=== PATIENT | female | born 2000 | race Caucasian/White ===

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

== ENCOUNTER → 2020-10-16 03:00 | Observation (INO) ==
[2020-10-16 02:36] LABS: Bacteria,Urine Few per hpf (None-Few); Bilirubin,Urine Negative (Negative); Blood,Urine Negative (Negative); Clarity,Urine Clear (Clear); Color,Urine Light-Yellow (Yellow); Glucose,Urine (UA) Normal (Normal); Ketones,Urine Negative (Negative); Leukocyte Esterase,Urine Moderate (Negative); Mucus,Urine Few per lpf (None-Few); Nitrite,Urine Negative (Negative); Protein,Urine Trace mg/dL (Neg-Trace); RBC,Urine 0-3 per hpf (0-3); Specific Gravity,Urine 1.022 (1.010-1.025); Squamous Epithelial Cell,Urine Few per hpf (None-Few)
== END | disposition home or self-care (01) ==
LOC: 1NENULAB
PROVIDERS: ADMIT Registered Nurse; ATTEND Registered Nurse

== ENCOUNTER 2020-10-16 13:04 | Inpatient (IN) ==
[~2020-10-16 13:04] MED LIST changes: -*HR* FentaNYL (PF) 100 MCG/2 ML VIAL IVP PRN; -Famotidine 20 MG/2 ML VIAL IVP PRN; -Lidocaine 1% 20 ML MDV INFILT PRN; +Methylergonovine 0.2 MG/ML AMPUL IM ONE; -Metoclopramide 10 MG/2 ML VIAL IVP PRN; -Naloxone 0.4 MG/ML INJ IVP PRN; -Ondansetron 4 MG/2 ML VIAL IVP PRN
[2020-10-16] MEDS ORDERED: Lidocaine 1% 20 ML MDV INFILT PRN (13:56)
[2020-10-16] MEDS ORDERED: Famotidine 20 MG/2 ML VIAL IVP PRN (13:56)
[2020-10-16] MEDS ORDERED: Metoclopramide 10 MG/2 ML VIAL IVP PRN (13:56)
[2020-10-16] MEDS ORDERED: Naloxone 0.4 MG/ML INJ IVP PRN (13:56)
[2020-10-16] MEDS ORDERED: *HR* Nalbuphine 10 MG/ML AMPUL IV PRN (13:56)
[2020-10-16] MEDS ORDERED: Ondansetron 4 MG/2 ML VIAL IVP PRN (13:56)
[2020-10-16] MEDS ORDERED: Ringers Solution, Lactated 1,000 ML IVC SCH (14:00)
[2020-10-16 14:25] LABS: Amphetamine Screen,Urine Negative ng/mL (Cutoff=1000); Barbiturate Screen,Urine Negative ng/mL (Cutoff=200); Benzodiazepines Screen,Urine Negative ng/mL (Cutoff=200); Cannabinoid Screen,Urine Negative ng/mL (Cutoff = 50); Cocaine Screen,Urine Negative ng/mL (Cutoff= 300); Opiate Screen,Urine Negative ng/mL (Cutoff=300); Phencyclidine Screen,Urine Negative ng/mL (Cutoff=25)
[2020-10-16 14:37] LABS: Basophils # 0.1 K/mcL (0.0-0.2); Basophils % 0.5 %; Eosinophils # 0.2 K/mcL (0.0-0.6); Eosinophils % 1.2 %; Hematocrit 31.1 % (35.3-44.9); Immature Granulocytes % 0.5 % (0-4); Lymphocytes # 2.1 K/mcL (0.6-4.6); Lymphocytes % 15.7 %; Mean Corpuscular HGB Conc 32.2 g/dL (31.6-35.5); Mean Corpuscular Hemoglobin 24.3 pg (28.0-33.3); Mean Corpuscular Volume 75.5 fL (83.0-100.0); Monocytes % 7.7 %; Neutrophils # 9.7 K/mcL (1.6-8.9); Platelet Count 174 K/mcL (140-400); Red Blood Count 4.12 M/mcL (3.82-4.97); Red Cell Distribution Width 14.3 % (11.5-14.5); Segmented Neutrophils % 74.4 %; White Blood Count 13.1 K/mcL (4.3-11.1)
[2020-10-16] MEDS ORDERED: Epidural Premix (fent/bupiv) 110 ML EP ONE (15:26)
[2020-10-16] MEDS ORDERED: Oxytocin 20 units/ LR 1000 mL 20 UNIT/1,000 ML BAG IVC SCH ×2 (19:45→23:38)
[2020-10-16] MEDS ORDERED: Benzocaine/Menthol 56 GM AEROSOL SPRAY TP PRN (23:38)
[2020-10-16] MEDS ORDERED: Oxytocin 20 units/ LR 1000 mL 20 UNIT/1,000 ML BAG IVC ONE (23:38)
[2020-10-16] MEDS ORDERED: Acetaminophen 325 MG TABLET PO PRN (23:38)
[2020-10-16] MEDS ORDERED: Rho Immune Globulin 1,500 UNIT SYRINGE IM PRN (23:38)
[2020-10-16] MEDS ORDERED: Lanolin 7 G OINT...G. TP PRN (23:38)
[2020-10-16] MEDS ORDERED: Measles/Mumps/Rubella Vacc 0.5 ML VIAL SQ PRN (23:38)
[2020-10-17] MEDS: Ibuprofen 600 MG TABLET PO PRN ×3 (00:30→20:33)
[2020-10-17] MEDS ORDERED: NON-FORMULARY MEDICATION 1 EACH EACH (Prenatal Vitamin Tablet 1 TAB) PO SCH (09:00)
[2020-10-17] MEDS: Prenatal Vit/FA 1 EACH TABLET PO SCH (09:04)
[2020-10-17 21:14] VITALS: O2SAT 98
[2020-10-18 08:10] VITALS: BP 115/68; PULSE 57; TEMP 97.8
[2020-10-18] MEDS: Ibuprofen 600 MG TABLET PO PRN (08:55)
[2020-10-18] MEDS: Prenatal Vit/FA 1 EACH TABLET PO SCH (09:06)
== END 2020-10-18 10:53 | disposition home or self-care (01) | DRG 542 ==
LOC: 1NENULAB → 1NENUOBS 10-17 05:14
PROVIDERS: ADMIT Student in an Organized Health Care Education/Training Program; ATTEND Student in an Organized Health Care Education/Training Program